=== PATIENT | female | born 1990 | race Caucasian/White ===

== ENCOUNTER 2019-04-10 22:45 | Emergency (ER) | payer OTHER ==
[2019-04-10 23:43] LABS: Absolute Lymphocytes (CBC) 1.8 K/uL (0.7-4.9); Basophils % 0.6 % (0-1.3); Hematocrit 36.4 % (36.0-45.0); Lymphocytes % 38.6 % (15.3-44.8); MPV 7.8 fL (7.6-11.3)
[2019-04-10] MEDS ORDERED: NA CHLORIDE 0.9% 1,000 ML ONE (23:46)
[2019-04-11 00:19] LABS: BUN Blood Urea Nitrogen 8 mg/dL (7-18); Bicarbonate 23 mmol/L (21-32); Glucose Level 92 mg/dL (74-106); HCG, Quantitative 63213 mIU/mL (1-3); Potassium 3.5 mmol/L (3.5-5.1); Sodium Level 139 mmol/L (136-145)
[2019-04-11 01:05] LABS: Urine Blood 2+ (NEG); Urine Glucose NEGATIVE (NEG); Urine Protein NEGATIVE (NEG)
--- NOTE | 2019-04-11 01:05 | ER ---
Nurse's Notes [facility] Name: Art Luther Age: 29 yrs Sex: Female : 1990 Arrival Date: 04/10/2019 Time: 22:47 Bed 5 Private MD: Linda Bradley K Diagnosis: related conditions, unspecified, second trimester;Threatened ;Urinary tract infection, site not specified Presentation: 04/10 23:00 Presenting complaint: Patient states: I went to Dr. Dawkins yesterday due to spotting jb4 that had stopped after I got there. Today about 20 minutes ago I started bleeding bright red blood and having cramps. Transition of care: patient was not received from another setting of care. Onset of symptoms was April 10, 2019. Risk Assessment: Do you want to hurt yourself or someone else? Patient reports no desire to harm self or others. Initial Sepsis Screen: Does the patient meet any 2 criteria? No. Patient's initial sepsis screen is negative. Does the patient have a suspected source of infection? No. Patient's initial sepsis screen is negative. Care prior to arrival: CPR. 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 jb4 23:20 2, Full Term 1, Premature 0, 0, Living 0 campbell Historical: - Allergies: 23:02 No Known Allergies; jb4 - Home Meds: 23:02 Vitamin Oral [Active]; jb4 - PMHx: 23:02 None; jb4 - PSHx: 23:02 None; jb4 - Immunization history:: Adult Immunizations up to date. - Social history:: Smoking status: Patient/guardian denies using tobacco, Patient/guardian denies using alcohol. - Ebola Screening: : No symptoms or risks identified at this time. - Family history:: not pertinent. Screenin:04 Abuse screen: Denies threats or abuse. Nutritional screening: No deficits noted. jb4 Tuberculosis screening: No symptoms or risk factors identified. Fall Risk None identified. Assessment: 23:04 General: Appears in no apparent distress. uncomfortable, Behavior is calm, cooperative, jb4 appropriate for age. Pain: Complains of pain in abdomen Pain does not radiate. Pain currently is 4 out of 10 on a pain scale. Quality of pain is described as crampy. Neuro: Level of Consciousness is awake, alert, obeys commands, Oriented to person, place, time, situation. Cardiovascular: Patient's skin is warm and dry. Respiratory: Airway is patent Respiratory effort is even, unlabored, Respiratory pattern is regular, symmetrical. GI: No deficits noted. No signs and/or symptoms were reported involving the gastrointestinal system. : danielle blood, Reports vaginal bleeding that is bright red. EENT: No deficits noted. No signs and/or symptoms were reported regarding the EENT system. Derm: Skin is intact, Skin is pink, warm \T\ dry. Musculoskeletal: Circulation, motion, and sensation intact. Range of motion: intact in all extremities. 04/11 00:32 Reassessment: Patient appears in no apparent distress at this time. Patient and/or jb4 family updated on plan of care and expected duration. Pain level reassessed. Patient is alert, oriented x 3, equal unlabored respirations, skin warm/dry/pink. 01:18 Reassessment: Patient appears in no apparent distress at this time. Patient and/or jb4 family updated on plan of care and expected duration. Pain level reassessed. Patient is alert, oriented x 3, equal unlabored respirations, skin warm/dry/pink. Vital Signs: 04/10 23:02 BP 121 / 73; Pulse 71; Resp 18; Temp 98.0(O); Pulse Ox 100% on R/A; Weight 108.86 kg jb4 (R); Height 5 ft. 7 in. (170.18 cm) (R); Pain 4/10; 04/11 00:15 BP 121 / 78; Pulse 78; Resp 16; Pulse Ox 100% on R/A; jb4 01:15 BP 124 / 76; Pulse 76; Resp 16; Pulse Ox 100% on R/A; jb4 04/10 23:02 Body Mass Index 37.59 (108.86 kg, 170.18 cm) [facility] ED Course: 04/10 22:47 Patient arrived in ED. mr 22:48 Linda Bradley MD is Private Physician. mr 23:00 Codey Michelle, MARCOS is Primary Nurse. 4 23:01 Triage completed. 4 23:02 Adam aSm MD is Attending Physician. campbell 23:02 Arm band placed on left wrist. jb4 23:04 Patient has correct armband on for positive identification. Placed in gown. Bed in low jb4 position. Call light in reach. Side rails up X 1. Pulse ox on. NIBP on. Warm blanket given. 23:34 Initial lab(s) drawn, by me, sent to lab. Inserted saline lock: 20 gauge in right jb4 antecubital area, using aseptic technique. Blood collected. 04/11 00:15 Ultrasound completed. Patient tolerated well. Notified ED Physician ramana. sg3 00:16 US Transvaginal Ob In Process Unspecified. [facility] 01:04 Wilbur Edge MD is Referral Physician. [facility] 01:19 No provider procedures requiring assistance completed. IV discontinued, intact, jb4 bleeding controlled, No redness/swelling at site. Pressure dressing applied. Administered Medications: 04/10 23:54 Drug: NS 0.9% 1000 ml Route: IV; Rate: 1 bolus; Site: right antecubital; jb4 04/11 01:18 Follow up: Response: No adverse reaction; IV Status: Order to discontinue infusion; IV jb4 Intake: 800ml 01:17 Drug: Rocephin 1 grams Route: IV; Rate: per protocol; Site: right antecubital; jb4 01:18 Follow up: Response: No adverse reaction; Medication administered at discharge.; IV jb4 Status: Completed infusion Intake: 01:18 IV: 800ml; Total: 800ml. jb4 Outcome: 01:04 Discharge ordered by . [facility] 01:19 Discharged to home ambulatory, with family. jb4 01:19 Condition: stable 01:19 Discharge instructions given to patient, family, Instructed on discharge instructions, follow up and referral plans. medication usage, Demonstrated understanding of instructions, follow-up care, medications, Prescriptions given X 2. 01:20 Patient left the ED. jb4 Signatures: Dispatcher [employer] Adam Horn MD MD cha Rivera, Codey Suarez RN RN jb4 Colette Hannon sg3
--- NOTE | 2019-04-11 01:06 | EDPHYS ---
Physician Documentation [facility] Name: Art Luther Age: 29 yrs Sex: Female : 1990 Arrival Date: 04/10/2019 Time: 22:47 Bed 5 Private MD: Linda Bradley K ED Physician Adam Sam HPI: 04/10 23:20 This 29 yrs old Female presents to ER via Ambulatory with complaints of 13 campbell wks , Vaginal Bleeding. 23:20 The patient presents with vaginal bleeding that is light. Onset: The symptoms/episode campbell began/occurred 1 day(s) ago. Modifying factors: The symptoms are alleviated by nothing, the symptoms are aggravated by nothing. Modifying factors: The symptoms are alleviated by. Associated signs and symptoms: The patient has no apparent associated signs or symptoms. Severity of symptoms: At their worst the symptoms were mild. The patient is sexually active, reportedly has a single partner. 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 jb4 23:20 2, Full Term 1, Premature 0, 0, Living 0 campbell Historical: - Allergies: 23:02 No Known Allergies; jb4 - Home Meds: 23:02 Vitamin Oral [Active]; jb4 - PMHx: 23:02 None; jb4 - PSHx: 23:02 None; jb4 - Immunization history:: Adult Immunizations up to date. - Social history:: Smoking status: Patient/guardian denies using tobacco, Patient/guardian denies using alcohol. - Ebola Screening: : No symptoms or risks identified at this time. - Family history:: not pertinent. ROS: 23:20 Constitutional: Negative for fever, chills, and weight loss, Eyes: Negative for injury, campbell pain, redness, and discharge, ENT: Negative for injury, pain, and discharge, Neck: Negative for injury, pain, and swelling, Cardiovascular: Negative for chest pain, palpitations, and edema, Respiratory: Negative for shortness of breath, cough, wheezing, and pleuritic chest pain, Abdomen/GI: Negative for abdominal pain, nausea, vomiting, diarrhea, and constipation, Back: Negative for injury and pain, MS/Extremity: Negative for injury and deformity, Skin: Negative for injury, rash, and discoloration, Neuro: Negative for headache, weakness, numbness, tingling, and seizure, Psych: Negative for depression, anxiety, suicide ideation, homicidal ideation, and hallucinations, Allergy/Immunology: Negative for hives, rash, and allergies, Endocrine: Negative for neck swelling, polydipsia, polyuria, polyphagia, and marked weight changes, Hematologic/Lymphatic: Negative for swollen nodes, abnormal bleeding, and unusual bruising. 23:20 : Positive for pelvic pain, vaginal bleeding, of the suprapubic area. Exam: 23:20 Constitutional: This is a well developed, well nourished patient who is awake, alert, campbell and in no acute distress. Head/Face: Normocephalic, atraumatic. Eyes: Pupils equal round and reactive to light, extra-ocular motions intact. Lids and lashes normal. Conjunctiva and sclera are non-icteric and not injected. Cornea within normal limits. Periorbital areas with no swelling, redness, or edema. ENT: Nares patent. No nasal discharge, no septal abnormalities noted. Tympanic membranes are normal and external auditory canals are clear. Oropharynx with no redness, swelling, or masses, exudates, or evidence of obstruction, uvula midline. Mucous membranes moist. Neck: Trachea midline, no thyromegaly or masses palpated, and no cervical lymphadenopathy. Supple, full range of motion without nuchal rigidity, or vertebral point tenderness. No Meningismus. Chest/axilla: Normal chest wall appearance and motion. Nontender with no deformity. No lesions are appreciated. Cardiovascular: Regular rate and rhythm with a normal S1 and S2. No gallops, murmurs, or rubs. Normal PMI, no JVD. No pulse deficits. Respiratory: Lungs have equal breath sounds bilaterally, clear to auscultation and percussion. No rales, rhonchi or wheezes noted. No increased work of breathing, no retractions or nasal flaring. Abdomen/GI: Soft, non-tender, with normal bowel sounds. No distension or tympany. No guarding or rebound. No evidence of tenderness throughout. Back: No spinal tenderness. No costovertebral tenderness. Full range of motion. MS/ Extremity: Pulses equal, no cyanosis. Neurovascular intact. Full, normal range of motion. Neuro: Awake and alert, GCS 15, oriented to person, place, time, and situation. Cranial nerves II-XII grossly intact. Motor strength 5/5 in all extremities. Sensory grossly intact. Cerebellar exam normal. Normal gait. Psych: Awake, alert, with orientation to person, place and time. Behavior, mood, and affect are within normal limits. 23:20 Abdomen/GI: Inspection: gravid appearance, obese Bowel sounds: active, Palpation: mild abdominal tenderness, in the suprapubic area, right lower quadrant and left lower quadrant, Liver: no appreciated palpable abnormalities, Hernia: not appreciated. 23:20 : CVA tenderness, is absent, Sexual behavior: the patient is sexually active. Vital Signs: 23:02 BP 121 / 73; Pulse 71; Resp 18; Temp 98.0(O); Pulse Ox 100% on R/A; Weight 108.86 kg jb4 (R); Height 5 ft. 7 in. (170.18 cm) (R); Pain 09/24; 04/11 00:15 BP 121 / 78; Pulse 78; Resp 16; Pulse Ox 100% on R/A; jb4 01:15 BP 124 / 76; Pulse 76; Resp 16; Pulse Ox 100% on R/A; jb4 04/10 23:02 Body Mass Index 37.59 (108.86 kg, 170.18 cm) jb4 MDM: 04/10 23:02 Patient medically screened. [facility] 23:24 Data reviewed: vital signs, nurses notes, lab test result(s), radiologic studies, campbell ultrasound. 04/10 23:19 Order name: Quantitative Hcg; Complete Time: 01:04 [facility] 04/10 23:19 Order name: Abo/rh Typing; Complete Time: 01:04 [facility] 04/10 23:19 Order name: Basic Metabolic Panel; Complete Time: 01:04 [facility] 04/10 23:19 Order name: CBC with Diff; Complete Time: 00:10 [facility] 04/10 23:19 Order name: Urine Culture [facility] 04/10 23:56 Order name: Urine Dipstick--Ancillary (enter results) [facility] 04/10 23:19 Order name: Urine Test (obtain specimen); Complete Time: 23:39 [facility] 04/10 23:19 Order name: IV Saline Lock; Complete Time: 23:39 [facility] 04/10 23:19 Order name: Labs collected and sent; Complete Time: 23:39 [facility] 04/10 23:19 Order name: NPO; Complete Time: 23:39 [facility] 04/10 23:19 Order name: US Transvaginal Ob [facility] 04/10 23:56 Order name: Urine --Ancillary (enter results) ar5 04/10 23:19 Order name: Urine Dipstick-Ancillary (obtain specimen); Complete Time: 23:39 [facility] Administered Medications: 23:54 Drug: NS 0.9% 1000 ml Route: IV; Rate: 1 bolus; Site: right antecubital; jb4 04/11 01:18 Follow up: Response: No adverse reaction; IV Status: Order to discontinue infusion; IV jb4 Intake: 800ml 01:17 Drug: Rocephin 1 grams Route: IV; Rate: per protocol; Site: right antecubital; jb4 01:18 Follow up: Response: No adverse reaction; Medication administered at discharge.; IV jb4 Status: Completed infusion Disposition: 04/11/19 01:04 Discharged to Home. Impression: related conditions, unspecified, second trimester, Threatened , Urinary tract infection, site not specified. - Condition is Stable. - Discharge Instructions: Threatened Miscarriage, Vaginal Bleeding During , Second Trimester, Threatened Miscarriage, [id number], Pelvic Rest. - Prescriptions for Vitamin 27- 0.8 mg Oral Tablet - take 1 tablet by ORAL route once daily; 30 tablet. Macrobid 100 mg Oral Capsule - take 1 capsule by ORAL route every 12 hours for 7 days; 14 capsule. - Medication Reconciliation Form, Thank You Letter, Antibiotic Education, Prescription Opioid Use form. - Follow up: Wilbur Edge; When: 1 - 2 days; Reason: Recheck today's complaints, Continuance of care, Re-evaluation by your physician. - Problem is new. - Symptoms have improved. Signatures: Dispatcher [employer] Adam Horn MD MD cha Bryson, James, RN RN jb4 Corrections: (The following items were deleted from the chart) 01:06 01:04 04/11/2019 01:04 Discharged to Home. Impression: related conditions, campbell unspecified, second trimester; Threatened . Condition is Stable. Discharge Instructions: Threatened Miscarriage, Vaginal Bleeding During , Second Trimester, Threatened Miscarriage, [id number], Pelvic Rest. Prescriptions for Vitamin 27-0.8 mg Oral Tablet - take 1 tablet by ORAL route once daily; 30 tablet. and Forms are Medication Reconciliation Form, Thank You Letter, Antibiotic Education, Prescription Opioid Use. Follow up: Wlibur Edge; When: 1 - 2 days; Reason: Recheck today's complaints, Continuance of care, Re-evaluation by your physician. Problem is new. Symptoms have improved. campbell 01:20 01:06 04/11/2019 01:04 Discharged to Home. Impression: related conditions, jb4 unspecified, second trimester; Threatened ; Urinary tract infection, site not specified. Condition is Stable. Discharge Instructions: Threatened Miscarriage, Vaginal Bleeding During , Second Trimester, Threatened Miscarriage, [id number], Pelvic Rest. Prescriptions for Vitamin 27-0.8 mg Oral Tablet - take 1 tablet by ORAL route once daily; 30 tablet. and Forms are Medication Reconciliation Form, Thank You Letter, Antibiotic Education, Prescription Opioid Use. Follow up: Wilbur Edge; When: 1 - 2 days; Reason: Recheck today's complaints, Continuance of care, Re-evaluation by your physician. Problem is new. Symptoms have improved. campbell
[2019-04-11] MEDS ORDERED: CEFTRIAXONE/SWI 1gm 1 GM/10 ML SYR ONE (01:10)
[2019-04-11 01:38] VITALS: BP 121/78; O2SAT 100
[2019-04-11 01:40] VITALS: TEMP 98
--- NOTE | 2019-04-11 08:06 | RAD REPORT ---
EXAM DESCRIPTION: US - Transvaginal OB - 04/11/2019 12:12 am CLINICAL HISTORY: with pelvic pain and vaginal bleeding COMPARISON: None. FINDINGS: The uterus measures 14 x 6 x 9 centimeters. A normal appearing gestational sac is present within the endometrium. Within this is a yolk sac and pole. Cardiac activity 155 beats per min kake. Cephalic presentation BPD 2.3 centimeters 13 weeks 5 days HC 8.5 centimeters 13 weeks 5 days AC 7.2 centimeters 13 weeks 5 days FL 1.2 centimeters 13 weeks 3 days Cervix 3.7 centimeters Posterior placenta. The tip lies 3.2 centimeters from the cervix Neither ovary was visualized No significant free fluid is seen. IMPRESSION: Single live intrauterine with an estimated gestational age 13 weeks 4 days ED D 10/12/2019 Cephalic presentation If a survey is desired it should be performed in approximately 5 weeks
== END 2019-04-11 01:20 | disposition home or self-care (01) ==
LOC: ER 22:45
DX: O20.0 Threatened abortion (principal); O23.41 Unspecified infection of urinary tract in pregnancy, first trimester; Z3A.13 13 weeks gestation of pregnancy
CPT/HCPCS: 96361; 87088; 85025; 87086; 80048; 36415; 86900; 81025; 86901; 84702; 81003; 76817; 96374; 99284; J0696; J7030

== ENCOUNTER 2019-09-23 12:53 | Inpatient (IN) | payer OTHER ==
[2019-09-23] MEDS ORDERED: miSOPROStoL 100 MCG TAB ONE ×2 (16:33→16:35)
[2019-09-23] MEDS ORDERED: Ringers Lactate 1,000 ML IV PRN (16:55)
[2019-09-23] MEDS ORDERED: Ringers Lactate 1,000 ML IV SCH (17:00)
[2019-09-23] MEDS ORDERED: OXYTOCIN/LR 20 UNIT/1,000 ML BAG IV SCH (17:00)
[2019-09-23 17:15] LABS: Absolute Lymphocytes (CBC) 1.6 K/uL (0.7-4.9); Basophils % 0.6 % (0-1.3); Hematocrit 34.1 % (36.0-45.0); Lymphocytes % 16.1 % (15.3-44.8); MPV 10.6 fL (7.6-11.3); RBC Red Blood Cell Count 3.76 M/uL (3.86-4.86)
--- NOTE | 2019-09-23 17:20 | RAD REPORT ---
EXAM DESCRIPTION: RAD - Abdomen Single View - 09/23/2019 5:15 pm CLINICAL HISTORY: presentation COMPARISON: No relevant comparison FINDINGS: Single gestation is identified. Cephalic presentation seen with spine to the maternal left . No abnormal bowel gas pattern. Well filled urinary bladder is seen. Delete select IMPRESSION: Single gestation in cephalic presentation, spine to the maternal left.
[2019-09-23 17:22] VITALS: BMI 40.4
[2019-09-23 17:52] LABS: Urine Appearance CLEAR; Urine Bilirubin NEGATIVE (NEG); Urine Blood 2+ (NEG); Urine Color YELLOW; Urine Glucose NEGATIVE (NEG); Urine Protein NEGATIVE (NEG); Urine Specific Gravity <=1.005 (1.005-1.030); Urine Urobilinogen 0.2 mg/dL (0.2-1.0)
[2019-09-23 17:57] LABS: Urine Microscopic Reflex ORDER UMIC
[2019-09-23] MEDS ORDERED: DIPHENHYDRAMINE 25 MG TAB/CAP PO ONE (18:00)
[2019-09-23 18:05] LABS: Urine Bacteria <20 /HPF (<20); Urine Culture Reflex Order REFLEXED; Urine Mucus 1+ /HPF (NONE SEEN)
[2019-09-23] MEDS ORDERED: miSOPROStoL 100 MCG TAB VAG SCH (19:00)
[2019-09-23] MEDS ORDERED: ZOLPIDEM TARTRATE 10 MG TABLET PO PRN (20:28)
[2019-09-23] MEDS ORDERED: HYDRALAZINE HCL 20 MG/ML VIAL IV ONE (21:54)
[2019-09-23] MEDS ORDERED: HYDRALAZINE HCL 20 MG/ML VIAL ONE (21:55)
[2019-09-23] MEDS ORDERED: HYDRALAZINE HCL 20 MG/ML VIAL IV PRN (21:56)
[2019-09-23] MEDS ORDERED: MAGNESIUM SULF/STERILE WATER 1,000 ML IV SCH (22:00)
[2019-09-24 02:15] LABS: RPR (Rapid Plasma Reagin) NON-REACT (NON-REACT)
[2019-09-24] MEDS ORDERED: BUTORPHANOL 1 MG/ML INJ ONE (05:07)
[2019-09-24] MEDS ORDERED: BUTORPHANOL 1 MG/ML INJ IV ONE (05:37)
[2019-09-24] MEDS ORDERED: ACETAMINOPHEN 500 MG TAB ONE (07:34)
[2019-09-24] MEDS ORDERED: LABETALOL 20 MG/4ML SYRINGE IV ONE ×3 (07:34→18:55)
--- NOTE | 2019-09-24 08:19 | PN ---
2.5 to 3 cm, still posterior baby, -2 station but with contraction applied, therefore rupture of memb ranes was performed. Clear fluid. Baby settled down against the cervix better. Blood pressures hav e moderated. Headache is getting better. Hopefully, she will go into more active phase of labor now and we can proceed. Full discussion with the patient's . JAE/ARLEY Voice ID: [id number] Report ID: [id number]
--- NOTE | 2019-09-24 08:41 | PN ---
The last blood pressure is 141 systolic after 20 mg labetalol. We will switch to labetalol now inste ad of Apresoline and give at any time, the systolic is 165 or more or diastolic 105 or more. We will try to get her membranes ruptured as soon as we can to facilitate delivery. After delivery, I think the situation with her blood pressure will improve and at that point, we can give her clonidine or o ther medicines that right now, I am stand away from because we do not want a drop the blood pressures to the point where the baby could be effected. JAE/ARLEY Voice ID: [id number] Report ID: [id number]
--- NOTE | 2019-09-24 08:59 | PREOPHP ---
Date of Admission: 09/23/2019 29-year-old 2, para 1, 37 weeks and 1 to 2 days noted to have preeclampsia, blood pressure is 140/90 range, +1 protein, significant edema +2, reflexes basically normal. No GENETIC TECHNOLOGIST symptoms. Baby i s vertex, but still very high. Cervix is 1 cm, soft. Patient had Cervidil induction with her first labor, Cytotec given 50 mcg inserted, full discussion about risks and complications and in creased risk of . Anticipate delivery sometime tomorrow. She is Rh positive, immune to Rube lla, negative beta strep screen. JAE/ARLEY Voice ID: [id number]
--- NOTE | 2019-09-24 09:26 | PN ---
Blood pressures have been very labile. During the night, she has been given Apresoline 5 mg on 3 to 4 occasions, which causes her blood pressure to come down, but it comes back fairly rapidly. In antonia tion, patient has developed a headache. Reflexes are still normal. We have switched to labetalol 20 mg IV now and we will repeat that in 15 to 20 minutes until her blood pressure has come down to a mo re reasonable range. Last systolic was 181. I have consulted Dr. Baumann for neurology to see if w aleah have any other suggestions. I have also consulted hospital director of field sales who is more readily available to see if they have any suggestions. Labetalol was suggested by the director of field sales, but I have asked him to come and see her, anyway we need consultation because of the neurological involvement now. Full discussion with patient and . JAE/ARLEY Voice ID: [id number] Report ID: [id number]
[2019-09-24] MEDS ORDERED: LABETALOL 20 MG/4ML SYRINGE IV SCH (11:00)
--- NOTE | 2019-09-24 12:41 | PN ---
Rebecca regularly but she still does not seem to be significantly uncomfortable. Baby looks good on the monitor. The fluid is clear. She has had 2 doses now of 20 mg of labetalol and it brings he r blood pressure down to less than 165. After the delivery, the hospitalist has recommended that she be put on 100 mg of labetalol twice a day, which we will institute after the delivery. She is not m aking any good progress right now. We will continue to increase the oxytocin until we get firm contr actions. They are very regular, but they really have not started causing her any significant discomf ort, and there has been no discernible descent of the vertex at this point. Magnesium level within a normal range this morning, we will get another one here in the next couple of hours. JAE/ARLEY Voice ID: [id number] Report ID: [id number]
--- NOTE | 2019-09-24 15:08 | PN ---
The patient has had two 20 mg doses of labetalol. Last blood pressure is 159 systolic. She has a mil d headache returning. We will give her couple of Tylenol and of course keep a close watch on her blo od pressures, give her another 20 mg of labetalol if needed. She is now 3.5 cm, 60% effaced, vertex, -1 station. So, she is starting to make some progress. She is having regular contractions but they are still not extremely forceful. We will continue to go up on the Pitocin until we reach the 20 to 22 milliunits range. Epidural anesthesia probably will be instituted when the patient gets to be ab out 4 cm and the baby is a little bit lower. She is doing quite well now and in good control with si mply breathing. Full discussion. Magnesium level at 2 p.m. The first level was well within the the rapeutic range. NBC/MODL Voice ID: [id number] Report ID: [id number]
--- NOTE | 2019-09-24 16:27 | P.CNS ---
Date of Consult: 09/24/19 Reason for Consult: Pre-eclampsia with uncontrolled blood pressure Requesting Physician: Silvio Edge Chief Complaint: Uncontrolled blood pressure History of Present Illness: 29-year-old woman P1, undergoing induced labor and noted to have elevated blood pressure. Patient is diagnosed with pre-eclampsia. Her systolic blood pressure was in the 180s and did not respond to IV hydralazine. Patient was complaining of headache. Hospitalist service consulted to assist with management of her blood pressure. Noted her blood pressure improved after a dose of IV labetalol. Patient also mentioned her headache had gotten better after a dose of Tylenol. She denies any visual changes. Allergies latex Allergy (Verified 09/23/19 18:27) Itching - Past Medical/Surgical History Diabetic: No -: None -: [place] teeth removed - Family History Father Medical History: Heart disease - Social History Smoking Status: Never smoker Alcohol use: No CD- Drugs: No Caffeine use: Yes Place of Residence: Home Review of Systems Other: Except as documented, all other systems reviewed and negative. Physical Examination General: Alert, In no apparent distress, Oriented x3 HEENT: Atraumatic, Normocephalic, PERRLA, Mucous membr. moist/pink, EOMI, Sclerae nonicteric Neck: Supple, JVD not distended Respiratory: Clear to auscultation bilaterally, Normal air movement Cardiovascular: Regular rate/rhythm, Normal S1 S2, Edema (2+ bilateral lower extremity pitting edema) Capillary refill: <2 Seconds Gastrointestinal: Normal bowel sounds, Soft and benign, Other (Gravid abdomen) Musculoskeletal: No erythema Integumentary: No rashes Neurological: Normal speech, Normal strength at 5/5 x4 extr, Cranial nerves 3-12 intact, Normal affect Laboratory Data (last 24 hrs) 09/24/19 13:49: Magnesium 5.8 H* D 09/24/19 04:14: Magnesium 4.6 H* 09/23/19 16:00: WBC 9.6 D, Hgb 11.7 L, Hct 34.1 L, Plt Count 196 - Problems (1) Preeclampsia Current Visit: Yes Status: Acute (2) Headache Current Visit: Yes Status: Acute Conclusions/Impression: Would recommend oral Labetalol after labor. Labetalol starting dose 100 mg prescribed to be titrated every 2-3 days for a target systolic blood pressure less than 140. Continue to give labetalol IV p.r.n. for BP spikes. Target systolic blood pressure of less than 140.
[2019-09-24] MEDS ORDERED: ROPIVACAINE HCL 100 ML IV PRN (17:40)
[2019-09-24] MEDS ORDERED: FENTANYL CITR 100 MCG/2 ML IV ONE (17:40)
[2019-09-24] MEDS ORDERED: ROPIVACAINE HCL 0.2% 20ML AMP IV ONE (18:00)
[2019-09-24] MEDS ORDERED: ROPIVACAINE HCL 0 ML ONE (18:07)
[2019-09-24] MEDS ORDERED: ROPIVACAINE HCL 100 ML IV ONE (18:07)
[2019-09-24] MEDS ORDERED: NA CIT/CITRIC AC 30 ML ORAL UDC ONE (19:09)
[2019-09-24] MEDS ORDERED: METOCLOPRAMIDE 10 MG/2mL INJ ONE (19:09)
[2019-09-24] MEDS ORDERED: FAMOTIDINE 20 MG/2 ML VIAL IV ONE (19:10)
[2019-09-24] MEDS ORDERED: CEFAZOLIN/SWI 2gm 2 GM/20 ML SYR ONE (19:10)
[2019-09-24] MEDS ORDERED: METHYLERGONOVINE 0.2MG/ML AMP IM ONE (19:11)
--- NOTE | 2019-09-24 20:32 | PN ---
Patient is having firm contractions now. She is starting to feel more than she was previously. We pastor andrews just moved to 24 milliunits of Pitocin, it was stopped at that point. The baby looks good. We p ut on a scalp electrode. No signs of any problems at this point. Blood pressures have moderated, le ss than 165 systolic. She has been given two 20 mg doses of labetalol. She says she really does not have a headache at this point. Still little dizzy from the Stadol she was given earlier. Pros and cons about giving an epidural right now, she is having back discomfort therefore probably has an occi put posterior presentation of the baby. She will start doing pelvic rocks. We will check her again in about an hour and a half and see if she has made any progress. She knows she can have the epidura l at any time but right now, she is willing to wait a little bit longer. Once she gets the epidural this might help her blood pressure but she knows that is not the prime reason for giving an epidural. Cervical exam is still not basically changed. She is 3-1/2, 50 to 60% effaced. She was still -1 st ation. JAE/ARLEY Voice ID: [id number] Report ID: [id number]
[2019-09-24] MEDS ORDERED: KETOROLAC 30 MG/ML INJ IM PRN (20:42)
[2019-09-24] MEDS ORDERED: BISACODYL 10 MG RECTAL SUPP RECT PRN (20:42)
[2019-09-24] MEDS ORDERED: ONDANSETRON 4 MG (ODT) TAB PO PRN (20:42)
[2019-09-24] MEDS ORDERED: ONDANSETRON 4 MG/2 ML VIAL IV PRN (20:42)
[2019-09-24] MEDS ORDERED: ACETAMINOPHEN 500 MG TAB PO PRN ×2 (20:42)
[2019-09-24] MEDS ORDERED: DIPHENHYDRAMINE 25 MG TAB/CAP PO PRN (20:42)
[2019-09-24] MEDS ORDERED: Oxycodone HCl/Acetaminophen 1 TAB TAB PO PRN ×2 (20:42)
[2019-09-24] MEDS ORDERED: KETOROLAC 30 MG/ML INJ IV PRN (20:42)
[2019-09-24] MEDS ORDERED: OXYTOCIN/LR 20 UNIT/1,000 ML BAG IV SCH (21:00)
[2019-09-24] MEDS ORDERED: D5LR 1,000 ML with OXYTOCIN 20 UNIT IV SCH ×2 (21:00)
--- NOTE | 2019-09-24 22:16 | OP ---
Surgeon: Wilbur Edge MD [employer] Supervisor: Dr. Morrissey is assistant loan processor surgeon. History: A 29-year-old 2, para 1, with severe preeclampsia. Patient progressed no more than 3 cm, baby stayed high the entire time in occiput posterior. Epidural anesthesia was attempted by Janet Cordero and he could not get the epidural and the patient requested delivery. Pros and c ons of this discussed, but she has made no progress during the day in spite of 3 doses of Cytotec and Pitocin up to 24 milliunits. At her request, oxytocin was discontinued, magnesium sulfate was tempo rarily discontinued. She had approximately 4 doses of 5 mg of Apresoline during her labor for blood pressure control and 3-4 doses of labetalol 20 mg IV. Infection, blood loss, anesthetic complication s, injury to bladder, bowel, ureter, postoperative complications, clots in legs, and pneumonia were d iscussed. Patient knows fully well this does not constitute all the possible problems that could occ ur during or following surgery. Anesthesia: Spinal block was established by Dr. Cordero. Description Of Procedure: After prepping and draping, time-out was performed. A Pfannenstiel incisi on was made, the incision was carried to the fascia. The fascia was incised and incision carried tra nsversely bilaterally. Anterior and posterior fascial planes were developed with both blunt and jessica p dissection. The underlying rectus muscle was . Peritoneum entered bluntly, low transvers e bladder flap developed, low transverse uterine incision created. A 5-pound 9-ounce female delivere d in straight occiput posterior. Nuchal cord tightly x2. Apgars 9 and 9. Placenta removed manually . Uterus cleared of clot and blood. The uterus closed with a running locked stitch of 1 chromic fol lowed by an imbricating stitch of 1 chromic followed by 2 azbsyr-kn-stuim stitches in the left angle for complete hemostasis. Estimated blood loss 850 mL. Uterus was replaced in the peritoneal cavity. Gutters clear of clot and blood. No further bleeding seen. At this point, the muscles were reappr oximated with 3 interrupted sutures of 0 Vicryl. The fascia was closed with 1 PDS, running from eith er angle to the midline. Subcutaneous tissue was closed with a running stitch of 2-0 plain, then sta ples placed. The patient has been given 2 g of Ancef for prophylaxis. Tolerated all procedures well . She will be transferred back to her room in good condition. We will restart the magnesium sulfate and continue until we see diuresis. Blood pressures will be of course watched carefully, any readin g of 165 systolic or 105 diastolic, we will either give labetalol are clonidine at this point since t he baby is out. Diagnosis: Diagnosis to this point is intrauterine gestation 37 weeks 2 days, severe preeclampsia Cy totec induction, failure to progress in labor, primary section, spinal block anesthesia, nuc anali cord x2. NBC/MODL Voice ID: [id number] Report ID: [id number]
[2019-09-24] MEDS ORDERED: cloNIDine HCL 0.1 MG TAB PO PRN (22:40)
[2019-09-24] MEDS ORDERED: LABETALOL HCL 100 MG/20 ML IV PRN (22:40)
--- NOTE | 2019-09-24 23:01 | PREOPHP ---
Date of Admission: 09/23/2019 Patient has made no progress. For the last several hours, she has been 2-1/2 to 3 -1 station. Baby is occiput posterior. I think she was about 2 this morning. So she has made minimal progress. She had 3 doses of Cytotec. She is on [address] Cordero attempted epidural and coul d not get it. The patient states that she wishes to proceed on with section at this point. Infection; blood loss; anesthetic complications; injury to bladder, bowel, ureter; postoperative com plications; clots in legs; pneumonia discussed. Patient knows fully well this does not constitute al l possible problems that could occur during or following surgery. She knows that if we cannot get ad equate spinal we will use general anesthetic. Her blood pressures have been very labile, at times in the 180 range. She was given about 4 doses of 5 mg of Apresoline and then we switched to labetalol. She has had 3-4 doses about also. Right now, blood pressures are normal. Baby looks good, but aft er we get the baby out we can be a little bit more aggressive in treating the blood pressures. Family History: Noncontributory. Allergies: SHE HAS AN ALLERGY TO LATEX. Physical Examination: Heart and lungs: Clear. Breasts: Without masses on previous visits. Abdomen: Term size. Extremities: Clear. She does have +2 edema, but still has normal reflexes. : Cervical as stated is not change with the patient approximately 3 cm and the cervix is still david ewhat posterior. The baby is at least -1 station, but looks good on the monitor. At this point, we will proceed with delivery expeditiously. JAE/ARLEY Voice ID: [id number]
[2019-09-25] MEDS ORDERED: D5LR 1,000 ML IV ONE (04:03)
[2019-09-25] MEDS ORDERED: OXYTOCIN 10 UNIT/ML ML IV ONE (04:05)
[2019-09-25] MEDS ORDERED: CEFAZOLIN 2 GM in NA CHLORIDE 0.9% 100 ML IVPB ONE (05:00)
[2019-09-25] MEDS ORDERED: CEFAZOLIN/SWI 1gm 2 GM/20 ML SYR ONE (05:02)
--- NOTE | 2019-09-25 08:24 | PN ---
Postop, patient has done well. H and H with basically no change. Lochia is normal. 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 No headaches or any other problems. Blood pressures have moderated. We have not had to give her any more labetalol IV since the time of delivery. Output is good and improving. We will continue th e magnesium sulfate. Better to reduce dose. Last level was 5.9 until she begins to diurese and then stop the magnesium sulfate and start her on phenobarbital at that point. Patient says she is hungry this morning. We will begin to feed her light food, and as soon as we can get rid of the Burrows, we will begin ambulation. Although even with the Burrows, she is encouraged to stand beside the bed and p ossibly even walk in the room. Seems to be doing quite well at this point. No post spinal block pro blems. Possibly home tomorrow afternoon, if not Saturday. Full discussion. JAE/ARLEY Voice ID: [id number] Report ID: [id number]
[2019-09-25 08:37] VITALS: O2SAT 100
[2019-09-25] MEDS: LABETALOL HCL 100 MG TAB PO SCH ×2 (08:50→21:56)
[2019-09-25] MEDS: ACETAMINOPHEN 500 MG TAB PO PRN (12:20)
--- NOTE | 2019-09-25 14:45 | P.PN ---
Subjective Date of Service: 09/25/19 Chief Complaint: Uncontrolled blood pressure Delivery by section. Patient currently has no complain. She denies any visual changes or headache. Her blood pressure has improved. Readings noted to be around 140. Physical Examination - Vital Signs Temperature: 98.3 F Blood Pressure: 139/76 Pulse: 81 Respirations: 18 Pulse Ox (%): 99 - Physical Exam General: Alert, In no apparent distress, Oriented x3 HEENT: Mucous membr. moist/pink Neck: Supple, JVD not distended Respiratory: Clear to auscultation bilaterally, Normal air movement Cardiovascular: Regular rate/rhythm, Normal S1 S2, Edema (1+ bilateral pedal edema.) Capillary refill: <2 Seconds Gastrointestinal: Normal bowel sounds, Soft and benign - Studies Laboratory Data (last 24 hrs) 09/25/19 05:00: Magnesium Cancelled 09/25/19 05:00: Hct Cancelled 09/25/19 04:55: Hct 34.2 L 09/25/19 04:55: Magnesium 5.9 H* Assessment And Plan - Current Problems (Diagnosis) (1) Preeclampsia Current Visit: Yes Status: Acute (2) Headache Current Visit: Yes Status: Acute - Plan Continue oral Labetalol. Anticipating systolic blood pressure to be less than 140 once steady state is reached. Will sign off. Please re-consult hospitalist service as needed.
[2019-09-25] MEDS ORDERED: Ringers Lactate 1,000 ML IV ONE (15:58)
[2019-09-25] MEDS: PHENOBARBITAL 32.4 MG TABLET PO SCH (16:10)
[2019-09-25] MEDS: IBUPROFEN 600 MG TAB PO PRN (19:00)
[2019-09-25] MEDS ORDERED: IBUPROFEN 600 MG TAB ONE (19:05)
[2019-09-25] MEDS ORDERED: MAGNESIUM HYDROXIDE 8% 30 ML PO PRN (20:42)
[2019-09-26] MEDS: ACETAMINOPHEN 500 MG TAB PO PRN (00:11)
[2019-09-26 06:05] VITALS: TEMP 98.4
[2019-09-26] MEDS: IBUPROFEN 600 MG TAB PO PRN (06:13)
[2019-09-26] MEDS ORDERED: IBUPROFEN 600 MG TAB ONE (06:20)
[2019-09-26] MEDS: LABETALOL HCL 100 MG TAB PO SCH (08:00)
[2019-09-26] MEDS: PHENOBARBITAL 32.4 MG TABLET PO SCH ×2 (08:00)
[2019-09-26 08:27] VITALS: BP 148/82
--- NOTE | 2019-09-26 08:52 | DS ---
Hospital Course: Art Luther is a 29-year-old 2, para 1, 37 weeks 2 days. Underwent section for failure to progress and occiput posterior and patient request. Patient was note d to have severe preeclampsia and had been given multiple doses of blood pressure medicines to reduce her blood pressure. Had been placed on magnesium sulfate and dilated to no more than 3 cm and the v ertex never descended into the pelvis. She has delivered under spinal block anesthesia of 5 pounds a nd 9 ounces female. Apgars 9 and 9. Nuchal cord tightly x2. Estimated blood loss 850 cc. Ancef fo r prophylaxis. Postoperatively, has done well, is afebrile, ambulating, voiding. Lochia is normal. Blood pressures have moderated, but they are still in the 150 systolic range, but patient no longer has any TRAVEL PT symptoms. She was having headaches during the labor intermittently. Dismissed with phen obarbital to continue to take for another 3 days, tramadol as needed. She will request Tdap administ ration before she leaves. She has no postspinal block headaches. Patient will be seen in the office next week for staple removal. To report any problems over the weekend to Labor And Delivery. Phone number has been provided. Final Diagnoses: Intrauterine gestation, 37 weeks 2 days, severe preeclampsia, failure to progress. Patient request primary section. Spinal block anesthesia. Nuchal cord x2. JAE/ARLEY Voice ID: [id number] Report ID: [id number]
[2019-09-26] MEDS ORDERED: Tdap (Diph,Pertuss(Acell),Tet Vac) 0.5 ML SYR IMVAC ONE (09:00)
[2019-09-27 20:34] LABS: HBsAG Nonreactive (Nonreactive)
--- NOTE | 2019-09-28 05:59 | PN ---
Blood pressures are moderated but her headache is better. She is carlene regularly but really is still not in discomfort yet. We will start Pitocin at this point and expect faster progress once she gets to 4 to 5 cm. JAE/ARLEY Voice ID: [id number] Report ID: [id number]
[2019-10-25] MEDS ORDERED: IBUPROFEN 200 MG TAB PO PRN (06:00)
== END 2019-09-26 08:45 | disposition home or self-care (01) | DRG 788 ==
LOC: 2ND-WC 15:55
PROVIDERS: ADMIT Specialist; ATTEND Specialist
PROC: 10907ZC Drainage of Amniotic Fluid, Therapeutic from Products of Conception, Via Natural or Artificial Opening (ICD-10-PCS; 2019-09-24)
PROC: 3E033VJ Introduction of Other Hormone into Peripheral Vein, Percutaneous Approach (ICD-10-PCS; 2019-09-24)
PROC: 3E0P7VZ Introduction of Hormone into Female Reproductive, Via Natural or Artificial Opening (ICD-10-PCS; 2019-09-24)
PROC: 4A1H7CZ Monitoring of Products of Conception, Cardiac Rate, Via Natural or Artificial Opening (ICD-10-PCS; 2019-09-24)
PROC: 10H073Z Insertion of Monitoring Electrode into Products of Conception, Via Natural or Artificial Opening (ICD-10-PCS; 2019-09-24)
PROC: 10D00Z1 Extraction of Products of Conception, Low, Open Approach (ICD-10-PCS; principal; 2019-09-24 19:30)
DX: O14.14 Severe pre-eclampsia complicating childbirth (principal); O62.0 Primary inadequate contractions; O69.1XX0 Labor and delivery complicated by cord around neck, with compression, not applicable or unspecified; Z3A.37 37 weeks gestation of pregnancy; Z37.0 Single live birth
CPT/HCPCS: 36415; 74018; 80048; 80076; 81001; 81003; 81015; 83735; 84550; 85014; 85025; 85730; 86592; 86901; 87086; 87088; 87340; 88307; 90471; 90715; 99218; J0360; J0595; J0690; J2210; J2590; J2765; J2795; J3010; J3475; J7120; J7121

== ENCOUNTER 2019-09-29 20:46 | Emergency (ER) | payer OTHER ==
[2019-09-29] MEDS ORDERED: NA CHLORIDE 0.9% 1,000 ML ONE (21:29)
[2019-09-29] MEDS ORDERED: FENTANYL CITR 100 MCG/2 ML ONE (21:29)
--- NOTE | 2019-09-29 21:47 | RAD REPORT ---
EXAM DESCRIPTION: CT - Head Brain Wo Cont - 09/29/2019 9:35 pm CLINICAL HISTORY: post /pre-eclampsia COMPARISON: No comparisonsNo comparisons TECHNIQUE: Axial 5 mm thick images of the head were obtained without IV contrast. All CT scans are performed using dose optimization technique as appropriate and may include automated exposure control or mA/KV adjustment according to patient size. FINDINGS: No intracranial hemorrhage, mass, edema or shift of mid-line structures. No acute infarcti on changes seen. No abnormal extra-axial fluid collections. Ventricles are normal. Mastoid air cells and visualized portions of the paranasal sinuses are clear. No acute bony findings. IMPRESSION: Negative non-contrast CT head examination. Major venous sinuses are grossly normal on this examination. Assessment is limited on a noncontrast s tudy.
--- NOTE | 2019-09-29 21:48 | RAD REPORT ---
EXAM DESCRIPTION: RAD - Chest Pa And Lat (2 Views) - 09/29/2019 9:33 pm CLINICAL HISTORY: /pre-eclampsia COMPARISON: None TECHNIQUE: Frontal and lateral views of the chest were obtained. FINDINGS: The lungs are clear. Heart size is normal and central vasculature is within normal limit s. No pleural effusion or pneumothorax seen. No acute bony finding noted. No aortic abnormality. IMPRESSION: No acute cardiopulmonary process.
[2019-09-29 21:55] LABS: Absolute Lymphocytes (CBC) 1.2 K/uL (0.7-4.9); Basophils % 0.5 % (0-1.3); Hematocrit 34.7 % (36.0-45.0); Lymphocytes % 18.6 % (15.3-44.8); MPV 7.9 fL (7.6-11.3); RBC Red Blood Cell Count 3.73 M/uL (3.86-4.86)
[2019-09-29 22:23] LABS: ALT/SGPT 88 U/L (12-78); AST/SGOT 58 U/L (15-37); Albumin 2.9 g/dL (3.4-5.0); Alkaline Phosphatase 100 U/L (45-117); BUN Blood Urea Nitrogen 8 mg/dL (7-18); Bicarbonate 23 mmol/L (21-32); Bilirubin Direct 0.1 mg/dL (0-0.2); Bilirubin Total 0.3 mg/dL (0.2-1.0); Glucose Level 93 mg/dL (74-106); Magnesium 1.9 mg/dL (1.8-2.4); Potassium 3.8 mmol/L (3.5-5.1); Sodium Level 142 mmol/L (136-145)
--- NOTE | 2019-09-29 22:46 | EDPHYS ---
Physician Documentation [facility] Name: Art Luther Age: 29 yrs Sex: Female : 1990 Arrival Date: 09/29/2019 Time: 20:50 Bed 5 Private MD: ED Physician Nj Calles HPI: 09/28 21:11 This 29 yrs old Female presents to ER via Ambulatory with complaints of snw Headache, High Blood Pressure. 21:11 The patient complains of pain to the top of head and forehead. The patient describes snw the headache as constant, unrelenting. Onset: The symptoms/episode began/occurred gradually, 1 week(s) ago, and became persistent. Associated signs and symptoms: Pertinent positives: , blurred vision, pre-eclampsia (c/section 5 days ago. Severity of symptoms: At its worst the pain was moderate, severe, in the emergency department the pain is unchanged. Headache History: Other with and since. the symptoms are aggravated by movement, HTN. The patient has not experienced similar symptoms in the past. Saw Dr. Edge and was given Clonidine, headache lessened x 6 hours and "just came back". 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 - Social history:: Smoking status: unknown Patient/guardian denies using alcohol, street drugs, tobacco products. ROS: 21:08 Constitutional: Negative for fever, chills, and weight loss, ENT: Negative for injury, snw pain, and discharge. 21:08 Neck: Negative for injury, pain, and swelling, Cardiovascular: Negative for chest pain, palpitations, and edema, Respiratory: Negative for shortness of breath, cough, wheezing, and pleuritic chest pain, Abdomen/GI: Negative for abdominal pain, nausea, vomiting, diarrhea, and constipation, Back: Negative for injury and pain, : Negative for injury, bleeding, discharge, and swelling, MS/Extremity: Negative for injury and deformity, Skin: Negative for injury, rash, and discoloration. 21:08 Psych: Negative for depression, anxiety, suicide ideation, homicidal ideation, and hallucinations. 21:08 Eyes: Positive for blurry vision. 21:08 Neuro: Positive for headache. Exam: 21:08 Constitutional: This is a well developed, well nourished patient who is awake, alert, snw and in no acute distress. Head/Face: Normocephalic, atraumatic. Eyes: Pupils equal round and reactive to light, extra-ocular motions intact. Lids and lashes normal. Conjunctiva and sclera are non-icteric and not injected. Cornea within normal limits. Periorbital areas with no swelling, redness, or edema. ENT: Nares patent. No nasal discharge, no septal abnormalities noted. Tympanic membranes are normal and external auditory canals are clear. Oropharynx with no redness, swelling, or masses, exudates, or evidence of obstruction, uvula midline. Mucous membranes moist. Neck: Trachea midline, no thyromegaly or masses palpated, and no cervical lymphadenopathy. Supple, full range of motion without nuchal rigidity, or vertebral point tenderness. No Meningismus. Chest/axilla: Normal chest wall appearance and motion. Nontender with no deformity. No lesions are appreciated. Cardiovascular: Regular rate and rhythm with a normal S1 and S2. No gallops, murmurs, or rubs. Normal PMI, no JVD. No pulse deficits. Respiratory: Lungs have equal breath sounds bilaterally, clear to auscultation and percussion. No rales, rhonchi or wheezes noted. No increased work of breathing, no retractions or nasal flaring. Abdomen/GI: Soft, non-tender, with normal bowel sounds. No distension or tympany. No guarding or rebound. No evidence of tenderness throughout. Back: No spinal tenderness. No costovertebral tenderness. Full range of motion. Skin: Warm, dry with normal turgor. Normal color with no rashes, no lesions, and no evidence of cellulitis. Low transverse c/s last 5 days ago, tamiko intact, area clean, no erythema, no discharge MS/ Extremity: Pulses equal, no cyanosis. Neurovascular intact. Full, normal range of motion. Neuro: Awake and alert, GCS 15, oriented to person, place, time, and situation. Cranial nerves II-XII grossly intact. Motor strength 5/5 in all extremities. Sensory grossly intact. Cerebellar exam normal. Normal gait. Psych: Awake, alert, with orientation to person, place and time. Behavior, mood, and affect are within normal limits. 21:08 Cardiovascular: Rate: normal, Edema: pedal edema, ankle edema. snw Vital Signs: 20:55 BP 158 / 97; Pulse 68; Resp 17; Temp 98; Pulse Ox 100% ; Weight 108.86 kg; Height 5 ft. rr5 7 in. (170.18 cm); Pain 10/10; 22:09 BP 153 / 81; Pulse 54; Resp 18; Pulse Ox 99% ; ea 22:52 BP 170 / 83; Pulse 57; Resp 18; Pulse Ox 100% ; ea 23:19 BP 148 / 70; Pulse 53; Resp 17; Pulse Ox 100% ; rr5 20:55 Body Mass Index 37.59 (108.86 kg, 170.18 cm) rr5 Roshan Coma Score: 22:15 Eye Response: spontaneous(4). Verbal Response: oriented(5). Motor Response: obeys snw commands(6). Total: 15. MDM: 20:55 Patient medically screened. snw 22:15 Data reviewed: vital signs, nurses notes. Data interpreted: Pulse oximetry: on room air snw is 99 %. Interpretation: normal. Counseling: I had a detailed discussion with the patient and/or guardian regarding: the historical points, exam findings, and any diagnostic results supporting the discharge/admit diagnosis, the presence of at least one elevated blood pressure reading (>120/80) during this emergency department visit, lab results, radiology results. 09/28 21:07 Order name: Magnesium; Complete Time: 22:28 snw 09/28 21:07 Order name: Lactate; Complete Time: 22:15 snw 09/28 21:07 Order name: LFT's; Complete Time: 22:28 snw 09/28 21:07 Order name: CBC with Diff; Complete Time: 22:09 snw 09/28 21:07 Order name: Chem 7; Complete Time: 22:28 snw 09/28 21:07 Order name: Osmolality, Serum; Complete Time: 22:28 snw 09/28 21:07 Order name: CT Head Brain wo Cont; Complete Time: 21:54 snw 09/28 21:10 Order name: Chest Pa And Lat (2 Views) XRAY; Complete Time: 21:54 snw Administered Medications: 21:49 Drug: fentaNYL (PF) 25 mcg {Note: RASS 0.} Route: IVP; Site: right antecubital; ea 22:08 Follow up: Response: No adverse reaction; Pain is decreased ea 21:52 Drug: NS 0.9% 1000 ml Route: IV; Rate: 75 ml/hr; Site: right antecubital; rr5 23:23 Follow up: Response: No adverse reaction; IV Status: Order to discontinue infusion; IV rr5 Intake: 75ml 22:55 Drug: Valium 10 mg Route: PO; rr5 23:20 Follow up: Response: No adverse reaction; Pain is decreased rr5 Disposition: 23:46 Co-signature as Attending Physician, Nj Calles MD. rn Disposition: 09/29/19 22:45 Discharged to Home. Impression: Headache, Edema, unspecified. - Condition is Stable. - Discharge Instructions: Edema, Hypertension, Preeclampsia and Eclampsia, Rehydration, Adult, Form - Blood Pressure Record Sheet. - Medication Reconciliation Form, Thank You Letter, Antibiotic Education, Prescription Opioid Use form. - Follow up: Emergency Department; When: As needed; Reason: Worsening of condition. Follow up: Private Physician; When: 1 - 2 days; Reason: Recheck today's complaints, Continuance of care, Re-evaluation by your physician. - Notes: Measure heartrate prior to Labetalol. If less than 60 beats per minute, do not take Labetalol. Avoid taking sumatriptan as it will raise blood pressure. Change positions slowly. Increase fluid intake. Try small amount of caffeine daily. Signatures: Dispatcher [employer] EDMS Sudha Whitney, AVAYA ENGINEER-C AVAYA ENGINEER-Csnw Nj Calles MD MD rn Antunez, Elena, RN RN ea Roque, Raymond RN RN rr5 Corrections: (The following items were deleted from the chart) 23:38 22:45 09/29/2019 22:45 Discharged to Home. Impression: Headache; Edema, unspecified. rr5 Condition is Stable. Forms are Medication Reconciliation Form, Thank You Letter, Antibiotic Education, Prescription Opioid Use. Follow up: Emergency Department; When: As needed; Reason: Worsening of condition. Follow up: Private Physician; When: 1 - 2 days; Reason: Recheck today's complaints, Continuance of care, Re-evaluation by your physician. snw
--- NOTE | 2019-09-29 22:46 | ER ---
Nurse's Notes [facility] Name: Art Luther Age: 29 yrs Sex: Female : 1990 Arrival Date: 09/29/2019 Time: 20:50 Bed 5 Private MD: Diagnosis: Headache;Edema, unspecified Presentation: 09/28 20:55 Chief complaint: Patient states: I am having this severe headache started 3 days ago. I rr5 gave last under spinal tap, C -section and was diagnosed for pre -eclampsia. 20:55 Coronavirus screen: Proceed with normal triage. Ebola Screen: Patient negative for rr5 fever greater than or equal to 101.5 degrees Fahrenheit, and additional compatible Ebola Virus Disease symptoms Patient denies exposure to infectious person. Patient denies travel to an Ebola-affected area in the 21 days before illness onset. Initial Sepsis Screen: Does the patient meet any 2 criteria? No. Patient's initial sepsis screen is negative. Does the patient have a suspected source of infection? No. Patient's initial sepsis screen is negative. Risk Assessment: Do you want to hurt yourself or someone else? Patient reports no desire to harm self or others. Onset of symptoms was September 26, 2019. 20:55 Method Of Arrival: Ambulatory rr5 20:55 Acuity: JAMES 3 rr5 Triage Assessment: 21:05 Headache History: The patient has had previous headaches and this one is more severe rr5 than previous episodes. 21:05 Pain: Also complains of inability to perform activities of daily living. 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 - Social history:: Smoking status: unknown Patient/guardian denies using alcohol, street drugs, tobacco products. Screenin:07 Abuse screen: Denies threats or abuse. Denies injuries from another. Nutritional rr5 screening: No deficits noted. Tuberculosis screening: No symptoms or risk factors identified. 21:30 Fall Risk IV access (20 points). Total Adair Fall Scale indicates No Risk (0-24 pts). rr5 Assessment: 21:05 General: Appears in no apparent distress. uncomfortable, Behavior is calm. rr5 21:05 Pain: Complains of pain in forehead Pain radiates to top of the head Pain currently is rr5 10 out of 10 on a pain scale. Quality of pain is described as aching, Pain began gradually, Is intermittent. Neuro: Level of Consciousness is awake, alert, obeys commands, Oriented to person, place, time, situation, Reports headache frontal area. Cardiovascular: Capillary refill < 3 seconds Patient's skin is warm and dry. Respiratory: Airway is patent Respiratory effort is even, unlabored, Respiratory pattern is regular, symmetrical. GI: No signs and/or symptoms were reported involving the gastrointestinal system. Reports intolerance of food, Patient currently denies nausea, vomiting. : No signs and/or symptoms were reported regarding the genitourinary system. EENT: No signs and/or symptoms were reported regarding the EENT system. Derm: Skin is intact, is healthy with good turgor, Skin temperature is warm. Musculoskeletal: Circulation, motion, and sensation intact. Capillary refill < 3 seconds. 21:25 Reassessment: went to CT via wheelchair assisted by CT staff. rr5 22:08 Reassessment: Patient and/or family updated on plan of care and expected duration. Pain ea level reassessed. Patient is alert, oriented x 3, equal unlabored respirations, skin warm/dry/pink. Awaiting on lab results. 22:50 Reassessment: Patient appears in no apparent distress at this time. Patient is alert, rr5 oriented x 3, equal unlabored respirations, skin warm/dry/pink. ED provider aware for the BP with order made and carried out. Patient states symptoms have improved. 23:19 Reassessment: Patient appears in no apparent distress at this time. Patient is alert, rr5 oriented x 3, equal unlabored respirations, skin warm/dry/pink. BP rechecked. discharge instruction given and explained without complaints made, verbalized understading. 23:20 Reassessment: waiting for her for the ride home. rr5 23:39 Reassessment: assisted going to her car thru wheelchair, accompanied by her . rr5 Vital Signs: 20:55 BP 158 / 97; Pulse 68; Resp 17; Temp 98; Pulse Ox 100% ; Weight 108.86 kg; Height 5 ft. rr5 7 in. (170.18 cm); Pain 10/10; 22:09 BP 153 / 81; Pulse 54; Resp 18; Pulse Ox 99% ; ea 22:52 BP 170 / 83; Pulse 57; Resp 18; Pulse Ox 100% ; ea 23:19 BP 148 / 70; Pulse 53; Resp 17; Pulse Ox 100% ; rr5 20:55 Body Mass Index 37.59 (108.86 kg, 170.18 cm) rr5 Roshan Coma Score: 22:15 Eye Response: spontaneous(4). Verbal Response: oriented(5). Motor Response: obeys snw commands(6). Total: 15. ED Course: 20:50 Patient arrived in ED. bp1 20:53 Sudha Whitney FNP-C is PHCP. snw 20:53 Nj Calles MD is Attending Physician. snw 20:58 Ramses Vasquez, MARCOS is Primary Nurse. rr5 21:02 Triage completed. rr5 21:07 Arm band placed on right wrist. rr5 21:30 Chest Pa And Lat (2 Views) XRAY In Process Unspecified. EDMS 21:34 CT Head Brain wo Cont In Process Unspecified. EDMS 21:38 Inserted saline lock: 20 gauge in right antecubital area, using aseptic technique. ea 21:49 Patient has correct armband on for positive identification. Placed in gown. Bed in low ea position. Call light in reach. Side rails up X2. 23:20 No provider procedures requiring assistance completed. IV discontinued, intact, rr5 bleeding controlled, No redness/swelling at site. Pressure dressing applied. Administered Medications: 21:49 Drug: fentaNYL (PF) 25 mcg {Note: RASS 0.} Route: IVP; Site: right antecubital; ea 22:08 Follow up: Response: No adverse reaction; Pain is decreased ea 21:52 Drug: NS 0.9% 1000 ml Route: IV; Rate: 75 ml/hr; Site: right antecubital; rr5 23:23 Follow up: Response: No adverse reaction; IV Status: Order to discontinue infusion; IV rr5 Intake: 75ml 22:55 Drug: Valium 10 mg Route: PO; rr5 23:20 Follow up: Response: No adverse reaction; Pain is decreased rr5 Intake: 23:23 IV: 75ml; Total: 75ml. rr5 Outcome: 22:45 Discharge ordered by MD. clemens 23:20 Discharged to home via wheelchair, with family. rr5 23:20 Condition: stable 23:20 Discharge instructions given to patient, Instructed on discharge instructions, follow up and referral plans. Demonstrated understanding of instructions, follow-up care. 23:38 Patient left the ED. rr5 Signatures: Dispatcher [employer] EDMS Sudha Whitney, LAYO-C SERVICE ORDER TAKER-Csnw Julissa Cottrell RN Ramses Avila ea, RN RN rr5 Blanca Lopez
[2019-09-29] MEDS ORDERED: DIAZEPAM 5 MG TABLET ONE (22:48)
[2019-09-29 23:49] VITALS: TEMP 98
[2019-09-29 23:50] VITALS: O2SAT 100
[2019-09-29 23:51] VITALS: BP 148/70
== END 2019-09-29 23:38 | disposition home or self-care (01) ==
LOC: ER 20:46
DX: R51 Headache (principal); R60.9 Edema, unspecified; Z91.040 Latex allergy status; Z91.048 Other nonmedicinal substance allergy status
CPT/HCPCS: 85025; 80048; 36415; 83735; 80076; 83605; 83930; 70450; 71046; J3010; J7030; 96361; 96374; 99284